=== PATIENT | male | born 1955 | race Caucasian/White ===

== ENCOUNTER 2019-06-14 14:24 | Inpatient (IN) | payer OTHER ==
[~2019-06-14] VITALS: Ht 182.9 cm; Wt 98.0 kg
[2019-06-14 15:28] LABS: CHLORIDE 112 mEq/L (98-107)
[2019-06-14 15:31] LABS: BASOPHILS % 1.2 % (0.0-2.0); EOSINOPHILS % 6.8 % (0.0-5.0); HEMATOCRIT. 32.9 % (42.0-52.0); HEMOGLOBIN. 11.7 g/dL (14.0-18.0); MEAN CORPUSCULAR HEMOGLOBIN 30.4 pg (28.0-32.0); MEAN CORPUSCULAR VOLUME 85.7 fL (80.0-94.0); MEAN PLATELET VOLUME 8.8 fl (7.4-10.4); MONOCYTES % 9.9 % (2.0-8.0); NEUTROPHILS % 45.1 % (40.0-76.0); PLATELET 89 x1000/uL (130-400); RED BLOOD CELL COUNT 3.83 mill/uL (4.7-6.1); RED CELL DISTRIBUTION WIDTH 15.4 % (11.6-14.6)
[2019-06-14 15:32] LABS: ETHANOL BLOOD < 10 mg/dL
[2019-06-14] MEDS ORDERED: DOCUSATE SODIUM 100MG CAPSULE PO PRN (18:45)
[2019-06-14] MEDS ORDERED: LORAZEPAM 0.5MG TABLET PO PRN (18:45)
[2019-06-14] MEDS ORDERED: HYDROCODONE/ACETAMINOPHEN 5/325MG TABLET PO PRN (18:45)
[2019-06-14] MEDS ORDERED: CLONIDINE 0.1MG TABLET PO PRN (18:45)
[2019-06-14] MEDS ORDERED: ACETAMINOPHEN 650MG SUPP PR PRN (18:45)
[2019-06-14] MEDS ORDERED: DIPHENHYDRAMINE 50MG/ML VIAL IV PRN (18:45)
[2019-06-14] MEDS ORDERED: GUAIFENESIN 200MG/10ML SUGAR FREE UDC PO PRN (18:45)
[2019-06-14] MEDS ORDERED: ACETAMINOPHEN 325MG TABLET PO PRN (18:45)
[2019-06-14] MEDS ORDERED: ONDANSETRON HCL 4MG/2ML INJ IV PRN (18:45)
[2019-06-14] MEDS ORDERED: MAGNESIUM/ALUMINUM HYDROXIDE/SIMETHICONE 30ML UDC PO PRN (18:45)
[2019-06-14] MEDS ORDERED: ASPIRIN 325MG TABLET PO ONE (19:59)
[2019-06-14 20:15] LABS: INR 1.1; PROTHROMBIN TIME 11.3 sec (9.6-11.0)
[2019-06-14 21:21] LABS: CLARITY URINE CLEAR (CLEAR); COLOR URINE YELLOW (YELLOW); KETONES URINE NEGATIVE (NEGATIVE); LEUKOCYTE ESTERASE URINE NEGATIVE (NEGATIVE); NITRITE URINE NEGATIVE (NEGATIVE); OCCULT BLOOD URINE NEGATIVE (NEGATIVE); PROTEIN URINE NEGATIVE (NEGATIVE); SPECIFIC GRAVITY URINE 1.015 (1.005-1.030)
[2019-06-14] MEDS ORDERED: NA PHOS,M-B/NA PHOS,DI-BA ENEMA 118ML PR PRN (21:30)
[2019-06-14 21:44] LABS: *AMPHETAMINES SCREEN URINE NEGATIVE (NEGATIVE); *BARBITURATES SCREEN URINE NEGATIVE (NEGATIVE); *BENZODIAZEPINES SCREEN URINE NEGATIVE (NEGATIVE)
[2019-06-14 21:45] LABS: *COCAINE SCREEN URINE NEGATIVE (NEGATIVE); CANNABINOID URINE SCREEN NEGATIVE (NEGATIVE); METHADONE URINE SCREEN NEGATIVE (NEGATIVE); OPIATES URINE SCREEN NEGATIVE (NEGATIVE); PHENCYCLIDINE URINE SCREEN NEGATIVE (NEGATIVE)
[2019-06-14] MEDS: ATORVASTATIN CALCIUM 20MG TABLET PO SCH (22:27)
[2019-06-14] MEDS ORDERED: ATORVASTATIN CALCIUM 20MG TABLET PO SCH (22:30)
[2019-06-15] VITALS: BP 153/97
[2019-06-15 01:00] VITALS: BP 153/70
[2019-06-15 05:03] VITALS: BP 117/67
[2019-06-15 07:17] LABS: CHLORIDE 112 mEq/L (98-107)
[2019-06-15 07:22] LABS: BASOPHILS % 1.9 % (0.0-2.0); EOSINOPHILS % 6.5 % (0.0-5.0); HEMATOCRIT. 32.5 % (42.0-52.0); HEMOGLOBIN. 11.3 g/dL (14.0-18.0); LYMPHOCYTES % 38.6 % (20.0-50.0); MEAN CORPUSCULAR HEMOGLOBIN 29.9 pg (28.0-32.0); MEAN CORPUSCULAR VOLUME 85.7 fL (80.0-94.0); MEAN PLATELET VOLUME 9.2 fl (7.4-10.4); MONOCYTES % 10.2 % (2.0-8.0); NEUTROPHILS % 42.8 % (40.0-76.0); PLATELET 80 x1000/uL (130-400); RED BLOOD CELL COUNT 3.79 mill/uL (4.7-6.1); RED CELL DISTRIBUTION WIDTH 15.5 % (11.6-14.6)
[2019-06-15 07:29] LABS: HDL CHOLESTEROL 21 mg/dL (40-59); T4 FREE 0.29 ng/dL (0.76-1.46)
[2019-06-15 07:30] LABS: LDL CHOLESTEROL 43 mg/dL (5-100)
[2019-06-15 08:00] VITALS: BP 154/76
[2019-06-15] MEDS: ASPIRIN 325MG EC TABLET PO SCH (08:03)
[2019-06-15 12:00] VITALS: BP 157/70
[2019-06-15] MEDS: LEVOTHYROXINE SODIUM 50MCG TABLET PO SCH (13:11)
[2019-06-15] MEDS ORDERED: IOHEXOL-350 100 ML BOTTLE ONE (17:21)
[2019-06-15 20:00] VITALS: BP 137/75
[2019-06-15] MEDS: DEXT 5%/0.45% NACL 1000ML 1,000 ML IV SCH (21:39)
[2019-06-16] VITALS: BP 130/60
[2019-06-16 04:00] VITALS: BP 129/70
[2019-06-16] MEDS: LEVOTHYROXINE SODIUM 50MCG TABLET PO SCH (06:17)
[2019-06-16 08:00] VITALS: BP 143/71
[2019-06-16] MEDS: ASPIRIN 325MG EC TABLET PO SCH (09:20)
[2019-06-16 12:00] VITALS: BP 125/72
[2019-06-16] MEDS: DEXT 5%/0.45% NACL 1000ML 1,000 ML IV SCH (15:04)
[2019-06-16 16:00] VITALS: BP 135/65
[2019-06-16 20:00] VITALS: BP 107/65
[2019-06-16] MEDS: ATORVASTATIN CALCIUM 20MG TABLET PO SCH (22:08)
[2019-06-17] VITALS (11 sets, daily range): BP systolic 112–154; BP diastolic 66–77
[2019-06-17] MEDS: DEXT 5%/0.45% NACL 1000ML 1,000 ML IV SCH (03:42)
[2019-06-17] MEDS: LEVOTHYROXINE SODIUM 50MCG TABLET PO SCH (06:45)
[2019-06-17 11:09] LABS: CHLORIDE 110 mEq/L (98-107)
[2019-06-17 11:37] LABS: BASOPHILS % 1.5 % (0.0-2.0); EOSINOPHILS % 6.8 % (0.0-5.0); HEMOGLOBIN. 11.6 g/dL (14.0-18.0); MEAN CORPUSCULAR HEMOGLOBIN 30.3 pg (28.0-32.0); MEAN CORPUSCULAR VOLUME 86.5 fL (80.0-94.0); MEAN PLATELET VOLUME 9.3 fl (7.4-10.4); MONOCYTES % 9.9 % (2.0-8.0); NEUTROPHILS % 39.8 % (40.0-76.0); PLATELET 84 x1000/uL (130-400); RED BLOOD CELL COUNT 3.82 mill/uL (4.7-6.1); RED CELL DISTRIBUTION WIDTH 15.3 % (11.6-14.6)
[2019-06-17] MEDS ORDERED: TETRACAINE/BENZOCAINE/BUTAMBEN 20 GM SPRAY MM ONE (12:43)
[2019-06-17] MEDS ORDERED: LIDOCAINE HCL 2% JELLY 5ML ONE (12:44)
[2019-06-17] MEDS ORDERED: FENTANYL CITRATE/PF 50MCG/ML 2ML VIAL ONE (12:50)
[2019-06-17] MEDS ORDERED: MIDAZOLAM HCL 2 MG/2 ML VIAL ONE (12:51)
[2019-06-17] MEDS ORDERED: LEVO50TA MT (13:43)
[2019-06-17] MEDS ORDERED: ASPI-986 MT (13:43)
[2019-06-17] MEDS ORDERED: ATOR20TA MT (13:43)
== END 2019-06-17 17:10 | disposition home or self-care (01) | DRG 69 ==
LOC: ER 14:38 → EDBEDREQ 16:06 → SUPCPDRO 18:44 → ENRESERV 23:53 → 8WST 06-15 00:44 → 5WST 06-16 07:02
PROVIDERS: ADMIT Internal Medicine; ATTEND Internal Medicine
PROC: 4A10X4Z Monitoring of Central Nervous Electrical Activity, External Approach (ICD-10-PCS; principal; 2019-06-17)
DX: G45.9 Transient cerebral ischemic attack, unspecified (principal); G81.91 Hemiplegia, unspecified affecting right dominant side; E86.0 Dehydration; D64.9 Anemia, unspecified; E03.9 Hypothyroidism, unspecified; I10 Essential (primary) hypertension; I45.10 Unspecified right bundle-branch block; R29.810 Facial weakness; R47.81 Slurred speech; R00.1 Bradycardia, unspecified; Z79.899 Other long term (current) drug therapy
CPT/HCPCS: 36415; 70498; 70544; 70553; 71045; 80048; 80061; 80305; 80320; 81003; 83036; 83880; 84439; 84443; 84484; 93005; 93306; 93312; 93970; 95816; 99285; J2250; J3010; Q9967; G0480